=== PATIENT | female | born 1985 | race Caucasian/White ===

== ENCOUNTER → 2016-10-03 | Outpatient (CLI) | payer BC ==
[2016-10-03 13:13] LABS: CHLORIDE,CL 107 mmol/L (98-110); SODIUM,NA 141 mmol/L (136-146)
== END ==
LOC: MW.CHOBGYN 11:10
PROVIDERS: ATTEND Nurse Practitioner Women's Health
DX: R53.83 Other fatigue (principal); R10.9 Unspecified abdominal pain; R00.0 Tachycardia, unspecified; R07.9 Chest pain, unspecified; R20.9 Unspecified disturbances of skin sensation
CPT/HCPCS: 36415; 80053; 82607; 82728; 82746; 84443; 84702; 85025; 85652; 93005

== ENCOUNTER 2019-04-13 18:47 | Inpatient (IN) | payer BC ==
[2019-04-13] MEDS ORDERED: Sodium Chloride 0.9% 2.5 ML Syringe FLUSH PRN (19:48)
[2019-04-13] MEDS ORDERED: Sodium Chloride 0.9% 10 ML SDV IV PRN (19:48)
[2019-04-13] MEDS ORDERED: Lidocaine 1% 50 ML MDV INJECT PRN (19:48)
[2019-04-13] MEDS ORDERED: Nalbuphine 10 MG/1 ML Vial IVPUSH PRN (19:48)
[2019-04-13] MEDS ORDERED: Methylergonovine 0.2 MG/1 ML Amp IM PRN (19:48)
[2019-04-13] MEDS ORDERED: Carboprost Tromethamine 250 MCG/1 ML Amp IM PRN (19:48)
[2019-04-13] MEDS ORDERED: Misoprostol 200 MCG Tab PO PRN (19:48)
[2019-04-13] MEDS ORDERED: Sodium Chloride 0.9% 10 ML Syringe FLUSH PRN (19:48)
[2019-04-13] MEDS ORDERED: Water For Irrigation,Sterile 1,000 ML Container IRR PRN (19:48)
[2019-04-13] MEDS ORDERED: Ondansetron 4 MG/2 ML SDV IVPUSH PRN (19:48)
[2019-04-13] MEDS ORDERED: Tranexamic Acid 1,000 MG in Sodium Chloride 0.9% 100 ML IV PRN (19:48)
[2019-04-13] MEDS ORDERED: Oxytocin/0.9 % Sodium Chloride 30 UNIT/500 ML BAG IV SCH ×2 (20:00→21:15)
[2019-04-13] MEDS ORDERED: Terbutaline 1 MG/ML SDV SUBCUT PRN (21:06)
[2019-04-13] MEDS ORDERED: Misoprostol 25 MCG (1/4 of 100 MCG) Tab VAG PRN (21:30)
[2019-04-14] MEDS: Misoprostol 25 MCG (1/4 of 100 MCG) Tab VAG PRN ×2 (02:09→06:24)
[2019-04-14] MEDS: Lactated Ringers 1,000 ML IV SCH ×2 (09:45→16:07)
[2019-04-14] MEDS: Butorphanol 1 MG/ML SDV IVPUSH PRN ×2 (15:12→16:25)
[2019-04-14] MEDS ORDERED: fentaNYL 100 MCG/2 ML SDV ONE (17:39)
[2019-04-14] MEDS ORDERED: Ropivacaine HCl/PF 100 ML ONE (17:39)
--- NOTE | 2019-04-14 18:03 | PCM.PREANE ---
Preanesthetic Assessment - Anesthesia/Transfusion/Family Hx Anesthesia History: Prior Anesthesia Without Reaction Family History of Anesthesia Reaction: No Transfusion History: No Prior Transfusion(s) Type of Transfusion Reactions: Reports: Unknown - Physical Assessment NPO Status Date: 04/14/19 NPO Status Time: 08:00 Height: 1.65 m Weight: 87.543 kg ASA Class: 1 Mental Status: Alert & Oriented x3 Airway Class: Mallampati = 1 Dentition: Reports: Normal Dentition - Lab Values: Laboratory Last Values WBC 10.97 K/uL (4.0-11.0) 04/13/19 20:03 RBC 4.03 M/uL (4.30-5.90) L 04/13/19 20:03 Hgb 11.4 g/dL (12.0-16.0) L 04/13/19 20:03 Hct 34.1 % (36.0-46.0) L 04/13/19 20:03 MCV 84.6 fL (80.0-98.0) 04/13/19 20:03 MCH 28.3 pg (27.0-32.0) 04/13/19 20:03 MCHC 33.4 g/dL (31.0-37.0) 04/13/19 20:03 RDW Std Deviation 45.1 fl (28.0-62.0) 04/13/19 20:03 RDW Coeff of Zheng 15 % (11.0-15.0) 04/13/19 20:03 Plt Count 286 K/uL (150-400) 04/13/19 20:03 MPV 9.30 fL (7.40-12.00) 04/13/19 20:03 Nucleated RBC % 0.0 /100WBC 04/13/19 20:03 Nucleated RBCs # 0 K/uL 04/13/19 20:03 Membrane Rupture POSITIVE 04/13/19 18:45 Blood Type A POSITIVE 04/13/19 20:03 Antibody Screen NEGATIVE 04/13/19 20:03 - Allergies Allergies/Adverse Reactions: Allergies Allergy/AdvReac Type Severity Reaction Status Date / Time No Known Allergies Allergy Verified 03/26/19 18:29 - Acknowledgements Anesthesia Type Planned: Epidural Pt an Appropriate Candidate for the Planned Anesthesia: Yes Alternatives and Risks of Anesthesia Discussed w Pt/Guardian: Yes Pt/Guardian Understands and Agrees with Anesthesia Plan: Yes PreAnesthesia Questionnaire HEENT History: Reports: None Cardiovascular History: Reports: None Respiratory History: Reports: None Gastrointestinal History: Reports: None Genitourinary History: Reports: None PATIENT PORTAL CONCIERGE History: Reports: Musculoskeletal History: Reports: None Neurological History: Reports: None Psychiatric History: Reports: None Endocrine/Metabolic History: Reports: None Hematologic History: Reports: Anemia Immunologic History: Reports: None Oncologic (Cancer) History: Reports: None Dermatologic History: Reports: None - Infectious Disease History Infectious Disease History: Reports: Chicken Pox - Past Surgical History Head Surgeries/Procedures: Reports: None HEENT Surgical History: Reports: Other (See Below) Other HEENT Surgeries/Procedures: Emerson tooth extraction Cardiovascular Surgical History: Reports: None Respiratory Surgical History: Reports: None GI Surgical History: Reports: None Female Surgical History: Reports: Breast Implant Endocrine Surgical History: Reports: None Neurological Surgical History: Reports: None Musculoskeletal Surgical History: Reports: None Oncologic Surgical History: Reports: None Dermatological Surgical History: Reports: None - SUBSTANCE USE Smoking Status *Q: Never Smoker Second Hand Smoke Exposure: Yes Recreational Drug Use History: No - HOME MEDS Home Medications: Home Meds Calcium Carbonate [Tums] 1 - 2 tab PO PRN 03/26/19 [History] Ferrous Sulfate [Iron] 1 tab PO DAILY 03/26/19 [History] PNV95/Ferrous Fumarate/FA [ Tablet] 1 tab PO DAILY 03/26/19 [History] - CURRENT (IN HOUSE) MEDS Current Meds: Current Medications Butorphanol Tartrate (Stadol) 1 mg IVPUSH Q1H PRN PRN Reason: Pain Last Admin: 04/14/19 16:25 Dose: 1 mg Carboprost Tromethamine (Hemabate Ds) 250 mcg IM ASDIRECTED PRN PRN Reason: Post Hemorrhage Tranexamic Acid 1,000 mg/ (Sodium Chloride) 110 mls @ 660 mls/hr IV ONETIME PRN PRN Reason: Bleeding Lactated Ringer's (Ringers, Lactated) 1,000 mls @ 150 mls/hr IV ASDIRECTED SAVAGE Last Admin: 04/14/19 16:07 Dose: 150 mls/hr Oxytocin/Sodium Chloride (Oxytocin 30 Unit/500 Ml-Ns) 30 unit in 500 mls @ 999 mls/hr IV TITRATE SAVAGE Oxytocin/Sodium Chloride (Oxytocin 30 Unit/500 Ml-Ns) 30 unit in 500 mls @ 2 mls/hr IV TITRATE S[facility]AGE; Protocol Last Titration: 04/14/19 16:29 Dose: 8 munits/min, 8 mls/hr Lidocaine HCl (Xylocaine 1%) 50 ml INJECT ONETIME PRN PRN Reason: Laceration repair Methylergonovine Maleate (Methergine) 0.2 mg IM ASDIRECTED PRN PRN Reason: Post Hemorrhage Misoprostol (Cytotec) 200 mcg PO ONETIME PRN PRN Reason: Post Hemorrhage Misoprostol (Cytotec) 25 mcg VAG ONETIME PRN PRN Reason: Cervical Ripening Last Admin: 04/13/19 22:06 Dose: 25 mcg Misoprostol (Cytotec) 25 mcg VAG Q4H PRN PRN Reason: Cervical Ripening Last Admin: 04/14/19 06:24 Dose: 25 mcg Nalbuphine HCl (Nubain) 10 mg IVPUSH Q1H PRN PRN Reason: Pain (severe 7-10) Ondansetron HCl (Zofran) 4 mg IVPUSH Q6H PRN PRN Reason: Nausea/Vomiting Sodium Chloride (Saline Flush) 10 ml FLUSH ASDIRECTED PRN PRN Reason: Keep Vein Open Sodium Chloride (Saline Flush) 2.5 ml FLUSH ASDIRECTED PRN PRN Reason: Keep Vein Open Sodium Chloride (Normal Saline) 10 ml IV ASDIRECTED PRN PRN Reason: IV Use Sterile Water (Sterile Water For Irrigation) 1,000 ml IRR ASDIRECTED PRN PRN Reason: delivery Terbutaline Sulfate (Brethine) 0.25 mg SUBCUT ASDIRECTED PRN PRN Reason: Tacysystole Discontinued Medications Fentanyl (Sublimaze) Confirm Administered Dose 100 mcg .ROUTE .STK-MED ONE Stop: 04/14/19 17:40 Ropivacaine (Naropin 0.2%) Confirm Administered Dose 100 mls @ as directed .ROUTE .STK-MED ONE Stop: 04/14/19 17:40
--- NOTE | 2019-04-14 18:06 | PCM.PRNOTE ---
- Free Text/Narrative Note: Anes Note Patient requests epidural for L&D. Sitting position, level l3-l4, midline approach. Sterile technique. Chlorarep scrub to lumbar area. Sterile fenstrated drape applied. Epdural space easily achieved using DELMI technique. DELMI at 4 cm. Epidural cath threaded 5 cm with ease. Secure at skin at 9 cm using clear adhesive dressing. Marga well. Test 1745 3 cc 1.5% lido with epi negative. Load 1748 10 cc 0.2% ropivicaine with 1 mcg cc fentanyl in slow divided doses. Pump started 1752 using same solution at 8 cc hr with 6 cc q 20 min prn bolus. Time with marielos [id number] Martin Chirinos VALVE SETTER
[2019-04-15] MEDS ORDERED: Ondansetron 4 MG/2 ML SDV IVPUSH ONE (00:25)
[2019-04-15] MEDS: Lactated Ringers 1,000 ML IV SCH (01:58)
[2019-04-15] MEDS ORDERED: Ropivacaine HCl/PF 100 ML ONE ×2 (02:13→07:15)
[2019-04-15] MEDS ORDERED: fentaNYL 100 MCG/2 ML SDV ONE ×2 (02:13→07:22)
--- NOTE | 2019-04-15 02:23 | PCM.PRNOTE ---
- Free Text/Narrative Note: Anes Note Epidural infusion completed. I replaced the epidural infusion bag and tubing. 100 cc 0.2% ropivicaine with 1 mcg cc fentanyl was started at 8 cc hr with 6 cc q 20 min prn bolus. Time with patient [id number] Martin Chirinos CRNA
[2019-04-15] MEDS ORDERED: Ampicillin 2 GM AdvVial IV ONE (02:45)
[2019-04-15] MEDS ORDERED: Sodium Chloride 0.9% 100 ML ONE (02:46)
[2019-04-15] MEDS ORDERED: Oxytocin/0.9 % Sodium Chloride 0 UNIT/0 ML BAG ONE (07:25)
[2019-04-15] MEDS: Ampicillin 2 GM in Sodium Chloride 0.9% 100 ML IV SCH (09:51)
[2019-04-15] MEDS ORDERED: Lanolin 100% Cream 7 GM Tube TOP PRN (09:54)
[2019-04-15] MEDS ORDERED: Hydrocortisone 2.5% Crm 30 GM Tube TOP PRN (09:54)
[2019-04-15] MEDS ORDERED: oxyCODONE 5 MG Tab PO PRN (09:54)
[2019-04-15] MEDS ORDERED: Ibuprofen 800 MG Tab PO PRN (09:54)
[2019-04-15] MEDS ORDERED: Bisacodyl 10 MG Supp RECTAL PRN (09:54)
[2019-04-15] MEDS ORDERED: Aluminum Hydroxide/Magnesium Hydroxide/Simethicone Susp 30 ML Cup PO PRN (09:54)
[2019-04-15] MEDS ORDERED: Acetaminophen 500 MG Tab PO PRN ×2 (09:54)
[2019-04-15] MEDS ORDERED: Docusate Sodium 100 MG Cap PO PRN (09:54)
[2019-04-15] MEDS ORDERED: Witch Hazel Medicated Pads 40/Jar TOP PRN (09:54)
[2019-04-15] MEDS ORDERED: Benzocaine/Menthol 20%-0.5% Spray 78 GM Cannister TOP PRN (09:54)
[2019-04-15] MEDS ORDERED: Ibuprofen 400 MG Tab PO PRN (09:54)
--- NOTE | 2019-04-15 10:06 | PCM.OPNOTE ---
- General Post-Op/Procedure Note Date of Surgery/Procedure: 04/15/19 Operative Procedure(s): /2nd MLE, extended to 3rd laceration Findings: Viable female APGARs 8, 9 weight 4450 gm. Spontaneous delivery intact placenta with 3 V cord. Shoulder dystocia on perineum 42 seconds--McRobert's, suprapubic , episiotomy and delivered left posterior arm. Pre Op Diagnosis: 40/5 week IUP. PPROM. LGA fetus Post-Op Diagnosis: Same. Shoulder dystocia Anesthesia Technique: Epidural Primary Surgeon: Shabnam Wilkes EBL in mLs: 350 Complications: none known Condition: Stable Free Text/Narrative:: Intake & Output 04/14/19 04/15/19 04/15/19 22:59 06:59 14:59 Intake Total 1150 Output Total 550 Balance 600 Dictation [id number]
--- NOTE | 2019-04-15 12:47 | OR ---
SURGEON: Shabnam Wilkes M.D. DATE OF PROCEDURE: 04/15/2019 PREOPERATIVE DIAGNOSES: 1. 40-5/7 weeks' intrauterine . 2. Premature prolonged rupture of membranes. 3. Large for gestational age fetus. POSTOPERATIVE DIAGNOSES: 1. 40-5/7 weeks' intrauterine . 2. Premature prolonged rupture of membranes. 3. Large for gestational age fetus. PROCEDURE: Spontaneous vaginal delivery with third-degree midline laceration repaired. PRIMARY SURGEON: Shabnam Wilkes MD. ANESTHESIA: Epidural. ESTIMATED BLOOD LOSS: 350 mL. COMPLICATIONS: None known. FINDINGS: Viable female. scores 8 at one minute, 9 at five minutes. Weight of 4450 g. Spontaneous delivery, intact placenta, 3-vessel cord to pathology. Shoulder dystocia of 42 seconds on the perineum. Did flatten the bed and Sidney positioning, suprapubic pressure followed by creating episiotomy and delivery of left posterior arm. DISPOSITION: The patient in LDRP, infant in nursery, stable. PROCEDURE DETAILS: Marcella is a 33-year-old, G1, P0, at 40-3/7 weeks' gestational age on her presentation on the evening of 04/13/2019 with leakage of fluid since the morning of 04/13/2019. She was found to be spontaneously ruptured. Group B strep negative and her cervix was quite unfavorable. Was approximately a centimeter thick and minus 3. Therefore, she was admitted, routine labs were drawn, and she then stayed on Cytotec ripening. The following morning, she was found to be 1, 2 cm, 60% effaced, minus 3 station. Therefore was converted to Pitocin, responded more readily to this, and began making slow cervical change through the day of 04/14/2019. She does remain afebrile and heart tones remained stable in the 120s to 130s. The patient became increasingly uncomfortable by the late afternoon of 04/14/2019 and underwent regional anesthesia in the from of epidural, became more comfortable, and then thereafter began making more progressive change. Throughout the late evening and companion caregiver hours steadily progressed to complete, 100% effaced, +1 station. She began pushing efforts shortly before 8:00 a.m. She did remain afebrile during the entire course. However, heart tones shifted to 150s and therefore given this change in baseline opted to proceed with prophylactic antibiotic at approximately 3:00 a.m. in the form of an ampicillin, dapsone, gentamicin, and clindamycin. The patient pushed readily to a +3 station. I was called for delivery. Upon my arrival, the patient was placed in modified dorsal lithotomy position. We were aware that the fetus is expected to be large for gestational age, so I am prepared for dystocia. She understands that we would not advise for separate vacuum assisted delivery. However, she is pushing very well. The patient began to continue with pushing efforts. Was able to deliver to a +4 station, delivered the head atraumatically thereafter. However, the shoulders did not easily deliver. The head of bed had already been flattened. She was placed in Sidney positioning and suprapubic pressure was applied. The anterior shoulder did not easily deliver, therefore an episiotomy was performed and was able to deliver the left posterior arm. Timer was at 42 seconds at the time of delivery, but the had been on the perineum. The anterior shoulder, remainder of the body delivered without difficulty. The infant's oropharynx and nares were bulb suctioned. Cord was clamped x2 and cut. was handed off to attending nursery staff for resuscitation. Cord arterial, cord venous, cord blood sampling obtained. Light pressure was applied while the placenta was delivered spontaneously intact. Vigorous fundal uterine massage was then applied while 30 units of Pitocin was delivered in 500 mL of IV fluid. Upon inspection of cervix, vaginal sidewall, and perineum, the second-degree midline episiotomy had extended to a partial third-degree laceration. Therefore, the portion of the capsule that had was reapproximated with 3-0 Vicryl with [id number] suturing followed by repair of the remainder of the second-degree laceration in the usual fashion. Hemostasis appeared evident. Uterus remained firm. Sponge, instrument, and needle count was correct. The patient will remain in LDRP, in nursery. ROMELIA / GISSELLE /[id number]
[2019-04-15] MEDS: Polyethylene Glycol 3350 Powder 17 GM Packet PO SCH (20:03)
[2019-04-15] MEDS: Ibuprofen Susp 100 MG/5 ML 10 ML UD Cup PO PRN (20:24)
[2019-04-16] MEDS: Ibuprofen Susp 100 MG/5 ML 10 ML UD Cup PO PRN ×2 (03:15→09:12)
[2019-04-16] MEDS: Ampicillin 2 GM in Sodium Chloride 0.9% 100 ML IV SCH ×2 (07:24→10:58)
--- NOTE | 2019-04-16 08:59 | PCM.PNPP ---
- General Info Date of Service: 04/16/19 Functional Status: Reports: Pain Controlled, Tolerating Diet, Ambulating, Urinating - Review of Systems General: Reports: Fatigue. Denies: Fever, Weakness Pulmonary: Denies: Shortness of Breath Cardiovascular: Denies: Chest Pain, Palpitations, Lightheadedness Gastrointestinal: Denies: Abdominal Pain, Nausea, Vomiting Genitourinary: Denies: Flank Pain Musculoskeletal: Reports: No Symptoms Skin: Reports: No Symptoms Neurological: Reports: No Symptoms Psychiatric: Reports: No Symptoms - General Info Date of Service: 04/16/19 - Patient Data Vital Signs - Most Recent: Last Vital Signs Temp 36.4 C 04/16/19 08:00 Pulse 80 04/16/19 08:00 Resp 17 04/16/19 08:00 BP 94/55 L 04/16/19 08:00 Pulse Ox 98 04/16/19 08:00 Weight - Most Recent: 87.543 kg Lab Results - Last 24 Hours: Laboratory Results - last 24 hr 04/15/19 04/16/19 Range/Units 09:20 06:08 WBC 15.32 H (4.0-11.0) K/uL RBC 3.15 L (4.30-5.90) M/uL Hgb 8.8 L (12.0-16.0) g/dL Hct 26.7 L (36.0-46.0) % MCV 84.8 (80.0-98.0) fL MCH 27.9 (27.0-32.0) pg MCHC 33.0 (31.0-37.0) g/dL RDW Std Deviation 46.1 (28.0-62.0) fl RDW Coeff of Zheng 15 (11.0-15.0) % Plt Count 211 (150-400) K/uL MPV 9.40 (7.40-12.00) fL Neut % (Auto) 72.7 (48.0-80.0) % Lymph % (Auto) 18.0 (16.0-40.0) % [place] % (Auto) 8.1 (0.0-15.0) % Eos % (Auto) 0.9 (0.0-7.0) % Baso % (Auto) 0.3 (0.0-1.5) % Neut # (Auto) 11.2 H (1.4-5.7) K/uL Lymph # (Auto) 2.8 H (0.6-2.4) K/uL [place] # (Auto) 1.2 H (0.0-0.8) K/uL Eos # (Auto) 0.1 (0.0-0.7) K/uL Baso # (Auto) 0.0 (0.0-0.1) K/uL Nucleated RBC % 0.0 /100WBC Nucleated RBCs # 0 K/uL Cord ABG pH 7.266 (7.18-7.38) Cord ABG Base Excess -5 (-10--2) Cord VBG pH 7.347 (7.25-7.45) Cord VBG Base Excess -7 (-10--2) Med Orders - Current: Current Medications Acetaminophen (Tylenol Extra Strength) 500 mg PO Q4H PRN PRN Reason: Pain Acetaminophen (Tylenol Extra Strength) 1,000 mg PO Q4H PRN PRN Reason: Pain Al Hydroxide/Mg Hydroxide (Mag-Al Plus) 30 ml PO Q8H PRN PRN Reason: Heartburn Benzocaine/Menthol (Dermoplast Pain Relief 20%-0.5% [place]) 78 gm TOP ASDIRECTED PRN PRN Reason: Perineal Comfort Measure Last Admin: 04/15/19 10:51 Dose: 1 cartridge Bisacodyl (Dulcolax) 10 mg RECTAL ONETIME PRN PRN Reason: Constipation Carboprost Tromethamine (Hemabate Ds) 250 mcg IM ASDIRECTED PRN PRN Reason: Post Hemorrhage Docusate Sodium (Colace) 100 mg PO BID PRN PRN Reason: Constipation Emollient Ointment (Lansinoh Hpa) 0 gm TOP ASDIRECTED PRN PRN Reason: Sore Nipples Last Admin: 04/15/19 20:02 Dose: 1 tube Hydrocortisone (Proctozone-Hc 2.5% Crm) 1 gm TOP 6XDAY PRN PRN Reason: Itching Tranexamic Acid 1,000 mg/ (Sodium Chloride) 110 mls @ 660 mls/hr IV ONETIME PRN PRN Reason: Bleeding Lactated Ringer's (Ringers, Lactated) 1,000 mls @ 150 mls/hr IV ASDIRECTED SAVAGE Last Admin: 04/15/19 01:58 Dose: 150 mls/hr Oxytocin/Sodium Chloride (Oxytocin 30 Unit/500 Ml-Ns) 30 unit in 500 mls @ 999 mls/hr IV TITRATE SAVAGE Oxytocin/Sodium Chloride (Oxytocin 30 Unit/500 Ml-Ns) 30 unit in 500 mls @ 2 mls/hr IV TITRATE [facility]; Protocol Last Titration: 04/14/19 20:21 Dose: 16 munits/min, 16 mls/hr Ampicillin Sodium 2 gm/ Sodium (Chloride) 100 mls @ 200 mls/hr IV Q6H [facility] Last Admin: 04/16/19 07:24 Dose: Not Given Gentamicin Sulfate 120 mg/ (Sodium Chloride) 53 mls @ 100 mls/hr IV Q8H [facility] Last Admin: 04/16/19 07:25 Dose: Not Given Ibuprofen (Motrin) 400 mg PO Q4H PRN PRN Reason: Pain Ibuprofen (Motrin) 800 mg PO Q6H PRN PRN Reason: Pain Ibuprofen (Motrin 100 Mg/5 Ml Susp) 600 mg PO Q6H PRN PRN Reason: Pain Last Admin: 04/16/19 03:15 Dose: 600 mg Methylergonovine Maleate (Methergine) 0.2 mg IM ASDIRECTED PRN PRN Reason: Post Hemorrhage Nalbuphine HCl (Nubain) 10 mg IVPUSH Q1H PRN PRN Reason: Pain (severe 7-10) Ondansetron HCl (Zofran) 4 mg IVPUSH Q6H PRN PRN Reason: Nausea/Vomiting Last Admin: 04/15/19 00:31 Dose: 4 mg Oxycodone HCl (Oxycodone) 5 mg PO Q2H PRN PRN Reason: Pain Polyethylene Glycol (Miralax) 17 gm PO DAILY [facility] Last Admin: 04/15/19 20:03 Dose: 17 gm Sodium Chloride (Saline Flush) 10 ml FLUSH ASDIRECTED PRN PRN Reason: Keep Vein Open Sodium Chloride (Saline Flush) 2.5 ml FLUSH ASDIRECTED PRN PRN Reason: Keep Vein Open Sodium Chloride (Normal Saline) 10 ml IV ASDIRECTED PRN PRN Reason: IV Use Sterile Water (Sterile Water For Irrigation) 1,000 ml IRR ASDIRECTED PRN PRN Reason: delivery Last Admin: 04/15/19 09:32 Dose: 1,000 ml Jaydon Villatoro (Rohithcksonido) 1 pad TOP ASDIRECTED PRN PRN Reason: comfort care Last Admin: 04/15/19 10:51 Dose: 1 tub Discontinued Medications Ampicillin Sodium (Ampicillin) Confirm Administered Dose 2 gm IV .STK-MED ONE Stop: 04/15/19 02:46 Last Admin: 04/15/19 02:52 Dose: 2 gm Butorphanol Tartrate (Stadol) 1 mg IVPUSH Q1H PRN PRN Reason: Pain Last Admin: 04/14/19 16:25 Dose: 1 mg Fentanyl (Sublimaze) Confirm Administered Dose 100 mcg .ROUTE .STK-MED ONE Stop: 04/14/19 17:40 Fentanyl (Sublimaze) Confirm Administered Dose 100 mcg .ROUTE .STK-MED ONE Stop: 04/15/19 02:14 Last Admin: 04/16/19 07:23 Dose: Not Given Fentanyl (Sublimaze) Confirm Administered Dose 100 mcg .ROUTE .ST-MED ONE Stop: 04/15/19 07:23 Last Admin: 04/16/19 07:24 Dose: Not Given Ropivacaine (Naropin 0.2%) Confirm Administered Dose 100 mls @ as directed .ROUTE .ST-MED ONE Stop: 04/14/19 17:40 Ropivacaine (Naropin 0.2%) Confirm Administered Dose 100 mls @ as directed .ROUTE .STK-MED ONE Stop: 04/15/19 02:14 Last Admin: 04/16/19 07:23 Dose: Not Given Gentamicin Sulfate 80 mg/ (Sodium Chloride) 52 mls @ 100 mls/hr IV Q8H [facility] Sodium Chloride (Normal Saline) Confirm Administered Dose 100 mls @ as directed .ROUTE .STK-MED ONE Stop: 04/15/19 02:47 Last Admin: 04/15/19 02:52 Dose: 200 mls/hr Ropivacaine (Naropin 0.2%) Confirm Administered Dose 100 mls @ as directed .ROUTE .STK-MED ONE Stop: 04/15/19 07:16 Last Admin: 04/16/19 07:24 Dose: Not Given Oxytocin/Sodium Chloride (Oxytocin 30 Unit/500 Ml-Ns) Confirm Administered Dose 30 unit in 500 mls @ as directed .ROUTE .STK-MED ONE Stop: 04/15/19 07:26 Last Admin: 04/16/19 07:24 Dose: Not Given Lidocaine HCl (Xylocaine 1%) 50 ml INJECT ONETIME PRN PRN Reason: Laceration repair Misoprostol (Cytotec) 200 mcg PO ONETIME PRN PRN Reason: Post Hemorrhage Misoprostol (Cytotec) 25 mcg VAG ONETIME PRN PRN Reason: Cervical Ripening Last Admin: 04/13/19 22:06 Dose: 25 mcg Misoprostol (Cytotec) 25 mcg VAG Q4H PRN PRN Reason: Cervical Ripening Last Admin: 04/14/19 06:24 Dose: 25 mcg Ondansetron HCl (Zofran) 4 mg IVPUSH ONETIME ONE Stop: 04/15/19 00:26 Last Admin: 04/16/19 07:23 Dose: Not Given Terbutaline Sulfate (Brethine) 0.25 mg SUBCUT ASDIRECTED PRN PRN Reason: Tacysystole - Interaction Support Person: Mother, Significant Other - Recovery Exam Fundal Tone: Firm Fundal Level: 1 Fingerbreadths Above Umbilicus Fundal Placement: Midline Lochia Amount: Scant Lochia Color: Rubra/Red Perineum Description: Edematous, Other (see below) Other Perinuem Description: slight Episiotomy/Laceration: Approximated Bladder Status: Voiding Urinary Elimination: Voided - Exam General: Alert, Oriented Lungs: Normal Respiratory Effort Cardiovascular: Regular Rate, Regular Rhythm GI/Abdominal Exam: Normal Bowel Sounds, Soft Extremities: Pedal Edema (trace). No: Anushka's Sign Skin: Warm, Dry, Intact Neurological: No New Focal Deficit Psy/Mental Status: Alert, Normal Affect, Normal Mood - Problem List & Annotations (1) Vaginal delivery SNOMED Code(s): 943831192 Code(s): O80 - ENCOUNTER FOR FULL-TERM UNCOMPLICATED DELIVERY Status: Acute Current Visit: Yes - Problem List Review Problem List Initiated/Reviewed/Updated: Yes - My Orders Last 24 Hours: My Active Orders 04/15/19 09:54 Patient Status [ADT] Routine May Shower [RC] ASDIRECTED Notify Provider Vital Signs [RC] ASDIRECTED Up ad Margarita [RC] ASDIRECTED Vital Signs [RC] PER UNIT ROUTINE Acetaminophen [Tylenol Extra Strength] 1,000 mg PO Q4H PRN Acetaminophen [Tylenol Extra Strength] 500 mg PO Q4H PRN Alum Hydrox/Mag Hydrox/Simeth [Mag-Al Plus] 30 ml PO Q8H PRN Benzocaine/Menthol [Dermoplast Pain Relief 20%-0.5% [place]] 78 gm TOP ASDIRECTED PRN Bisacodyl [Dulcolax] 10 mg RECTAL ONETIME PRN Docusate Sodium [Colace] 100 mg PO BID PRN Hydrocortisone [Proctozone-HC 2.5% Crm] 1 gm TOP 6XDAY PRN Ibuprofen [Motrin] 400 mg PO Q4H PRN Ibuprofen [Motrin] 800 mg PO Q6H PRN Lanolin [Lansinoh HPA] See Dose Instructions TOP ASDIRECTED PRN Witch Shauna [Tucks] 1 pad TOP ASDIRECTED PRN oxyCODONE 5 mg PO Q2H PRN Assess Lochia [WOMSER] Per Unit Routine Assess Uterine Involution [WOMSER] Per Unit Routine Breast Pump [WOMSER] Per Unit Routine Peripheral IV Discontinue [OM.PC] Routine 04/15/19 09:55 Ice Therapy [OM.PC] Per Unit Routine Perineal Care [OM.PC] Per Unit Routine Sitz Bath [OM.PC] Per Unit Routine 04/15/19 Lunch Regular Diet [DIET] 04/16/19 08:56 Ready for Discharge [RC] PER UNIT ROUTINE - Assessment Assessment:: PPD 1 status post /3rd MLL repaired - Plan Plan:: VS are stable, patient has been afebrile. Labs are relatively stable. Patient adivsed to take PNV, iron and stool softener daily. She would like to go home later today. Infection and bleeding warnings reviewed. Follow up at [facility] 6 weeks. Discharge instructions reviewed. Discharge to home later today.
[2019-04-16] MEDS: Polyethylene Glycol 3350 Powder 17 GM Packet PO SCH (09:12)
== END 2019-04-16 13:40 | disposition home or self-care (01) | DRG 542 ==
LOC: MW.OBCHECK 18:47 → MW.OB 19:05 → MW.OBCHECK 19:43 → MW.OB 19:43 → OBSVTOIN 04-15 09:54 → MW.OB 04-15 12:30
PROVIDERS: ADMIT Obstetrics & Gynecology; ATTEND Obstetrics & Gynecology
PROC: 10E0XZZ Delivery of Products of Conception, External Approach (ICD-10-PCS; principal; 2019-04-15)
PROC: 3E033VJ Introduction of Other Hormone into Peripheral Vein, Percutaneous Approach (ICD-10-PCS; 2019-04-15)
PROC: 3E0P7VZ Introduction of Hormone into Female Reproductive, Via Natural or Artificial Opening (ICD-10-PCS; 2019-04-15)
PROC: 0DQR0ZZ Repair Anal Sphincter, Open Approach (ICD-10-PCS; 2019-04-15)
PROC: 3E0R3BZ Introduction of Anesthetic Agent into Spinal Canal, Percutaneous Approach (ICD-10-PCS; 2019-04-15)
DX: O42.02 Full-term premature rupture of membranes, onset of labor within 24 hours of rupture (principal); O41.1230 Chorioamnionitis, third trimester, not applicable or unspecified; O70.20 Third degree perineal laceration during delivery, unspecified; Z37.0 Single live birth; Z3A.40 40 weeks gestation of pregnancy
CPT/HCPCS: 01967; 36415; 51702; 59025; 59409; 82803; 84112; 85025; 85027; 86850; 86900; 86901; 88307; A9270-GY; J0290; J0595; J1580; J2405; J2590; J2795; J3010; J7030; J7050; J7120